=== PATIENT | male | born 1950 | race Two or more races ===

== ENCOUNTER 2025-02-20 04:15 | Inpatient (IN) | payer MEDICARE ==
[~2025-02-20] VITALS: Ht 172.7 cm; Wt 90.1 kg
[2025-02-20] VITALS (9 sets, daily range): BP systolic 125–159; BP diastolic 45–83; PULSE 45–100; RESP 12–24; TEMP 36.0288–36.7; O2SAT 91–99
[2025-02-20] MEDS: ALBUTEROL (0.083%) 2.5MG/3ML NEB HHN ONE (04:47)
[2025-02-20 05:07] LABS: HEMATOCRIT. 28.4 % (42.0-52.0); HEMOGLOBIN. 8.6 g/dL (14.0-18.0); MEAN PLATELET VOLUME 8.9 fl (7.4-10.4); PLATELET 146 x1000/uL (130-400); RED BLOOD CELL COUNT 3.20 mill/uL (4.7-6.1); RED CELL DISTRIBUTION WIDTH 18.9 % (11.6-14.6)
[2025-02-20 05:18] LABS: INR 1.2
[2025-02-20] MEDS: IPRATROPIUM BROMIDE (0.02%) 0.5MG/2.5ML NEB HHN NR (05:27)
[2025-02-20 05:36] LABS: CREATININE 4.0 mg/dL (0.6-1.3); UREA NITROGEN BLOOD 74 mg/dL (9-23)
[2025-02-20 05:37] LABS: ASPARTATE AMINOTRANSFERASE 61 IU/L (<34); PROTEIN TOTAL 5.5 g/dL (6.0-8.3)
[2025-02-20 05:38] LABS: BILIRUBIN DIRECT 0.2 mg/dL (<=3.0); BILIRUBIN TOTAL 0.8 mg/dL (0.1-1.0); LYMPHOCYTES % MANUAL 10.0 % (20.0-50.0); MONOCYTES % MANUAL 12.0 % (2.0-8.0); NEUTROPHILS % MANUAL 78.0 % (45.0-75.0); PLATELET ESTIMATE NORMAL
[2025-02-20 05:47] LABS: TROPONIN I HIGH SENSITIVITY 99 ng/L (3.0-53)
[2025-02-20 05:52] LABS: ETHANOL BLOOD < 10 mg/dL (<10)
[2025-02-20] MEDS: ASPIRIN 325MG EC TABLET PO ONE (05:59)
[2025-02-20] MEDS: FUROSEMIDE 40MG/4ML VIAL IVP NR (05:59)
[2025-02-20] MEDS ORDERED: DOCUSATE SODIUM 100MG CAPSULE PO PRN (11:15)
[2025-02-20] MEDS ORDERED: ACETAMINOPHEN 325MG TABLET PO PRN ×2 (11:15)
[2025-02-20] MEDS ORDERED: IPRATROPIUM/ALBUTEROL 0.5-3(2.5)MG/3ML NEB HHN PRN (11:15)
[2025-02-20] MEDS ORDERED: GUAIFENESIN 200MG/10ML SUGAR FREE UDC PO PRN (11:15)
[2025-02-20] MEDS ORDERED: MAGNESIUM/ALUMINUM HYDROXIDE/SIMETHICONE 30ML UDC PO PRN (11:15)
[2025-02-20] MEDS ORDERED: NA PHOS,M-B/NA PHOS,DI-BA ENEMA 118ML PR PRN (11:15)
[2025-02-20] MEDS ORDERED: NITROGLYCERIN 0.4MG TABLET SL SL PRN (11:45)
[2025-02-20] MEDS: BLOOD SUGAR DIAGNOSTIC STRIP TEST SCH (12:00)
[2025-02-20] MEDS: CLOPIDOGREL 75MG TABLET PO SCH (12:00)
[2025-02-20] MEDS: ASPIRIN 81MG EC TABLET PO SCH (12:00)
[2025-02-20] MEDS: TAMSULOSIN HCL 0.4MG SR CAPSULE PO SCH (12:00)
[2025-02-20] MEDS: INSULIN LISPRO 100 UNITS/ML SUBCUT SCH (12:00)
[2025-02-20 12:13] LABS: BG BASE EXCESS -8.1 mmol/L (-2.0-3.0); BG CARBOXYHEMOGLOBIN 1.6 % (0.5-1.5); BG DEOXYHEMOGLOBIN 13.2 % (0.0-5.0); BG FRACTION INSPIRED OXYGEN 40; BG HCO3 ACT 22.3 mmol/L (21.0-28.0); BG METHEMOGLOBIN 0.3 % (0.5-1.5); BG OXYGEN SATURATION 86.5 % (94.0-98.0); BG OXYHEMOGLOBIN 84.9 % (94.0-98.0); BG PCO2 74.7 mmHg (35.0-48.0); BG PH 7.093 (7.350-7.450); BG PO2 66.0 mmHg (83.0-108.0); BG SAMPLE SITE RIGHT RADIAL; BG TOTAL HEMOGLOBIN 10.6 g/dL (13.5-17.5); BG VENT MODE NASAL CANNULA
[2025-02-20] MEDS: DEXTROSE 50% WATER 50ML SYRINGE IV SCH (13:02)
[2025-02-20] MEDS: SODIUM BICARBONATE 8.4% 50MEQ/50ML SYR IV SCH (13:02)
[2025-02-20] MEDS: CALCIUM CHLORIDE 1GM/10ML SYR IV SCH (13:03)
[2025-02-20] MEDS: FUROSEMIDE 40MG/4ML VIAL IVP SCH ×2 (13:03→17:46)
[2025-02-20] MEDS: ENOXAPARIN 100MG/ML SYR SUBCUT SCH (13:07)
[2025-02-20] MEDS: INSULIN REGULAR (HUMULIN R) 1000UNITS/10ML VIAL IV SCH (13:08)
[2025-02-20 13:56] LABS: BG BASE EXCESS -6.6 mmol/L (-2.0-3.0); BG CARBOXYHEMOGLOBIN 1.6 % (0.5-1.5); BG DEOXYHEMOGLOBIN 0.6 % (0.0-5.0); BG FRACTION INSPIRED OXYGEN 50; BG HCO3 ACT 23.6 mmol/L (21.0-28.0); BG METHEMOGLOBIN 0.3 % (0.5-1.5); BG OXYGEN SATURATION 99.4 % (94.0-98.0); BG OXYHEMOGLOBIN 97.5 % (94.0-98.0); BG PCO2 76.7 mmHg (35.0-48.0); BG PH 7.106 (7.350-7.450); BG PO2 189.0 mmHg (83.0-108.0); BG SAMPLE SITE RIGHT RADIAL; BG TOTAL HEMOGLOBIN 10.1 g/dL (13.5-17.5); BG VENT MODE MASK - BIPAP; BG VENT RATE 20.0 set
[2025-02-20] MEDS: FAMOTIDINE 20MG/2ML VIAL IV SCH (14:01)
[2025-02-20] MEDS: METHYLPREDNISOLONE SOD SUCC 40MG/ML (ACT-O-VIAL) IV SCH (14:02)
[2025-02-20 15:29] LABS: BG BASE EXCESS -8.8 mmol/L (-2.0-3.0); BG CARBOXYHEMOGLOBIN 1.6 % (0.5-1.5); BG DEOXYHEMOGLOBIN 2.3 % (0.0-5.0); BG FRACTION INSPIRED OXYGEN 30; BG HCO3 ACT 20.7 mmol/L (21.0-28.0); BG METHEMOGLOBIN 0.2 % (0.5-1.5); BG OXYGEN SATURATION 97.7 % (94.0-98.0); BG OXYHEMOGLOBIN 95.9 % (94.0-98.0); BG PCO2 64.5 mmHg (35.0-48.0); BG PH 7.124 (7.350-7.450); BG PO2 108.1 mmHg (83.0-108.0); BG SAMPLE SITE RIGHT RADIAL; BG TOTAL HEMOGLOBIN 10.3 g/dL (13.5-17.5); BG VENT MODE MASK - BIPAP; BG VENT RATE 24.0 set
[2025-02-20] MEDS: ATORVASTATIN CALCIUM 40MG TABLET PO SCH (22:37)
[2025-02-20 22:49] LABS: CREATININE 4.1 mg/dL (0.6-1.3); UREA NITROGEN BLOOD 72 mg/dL (9-23)
[2025-02-20 22:52] LABS: FOLIC ACID (FOLATE) SERUM 14.30 ng/mL (>5.38); TROPONIN I HIGH SENSITIVITY 75 ng/L (3.0-53)
[2025-02-20 22:53] LABS: VITAMIN B12 SERUM 689 pg/mL (211-911)
[2025-02-20 23:01] LABS: PHOSPHORUS 8.0 mg/dL (2.5-4.9)
[2025-02-21] VITALS (16 sets, daily range): BP systolic 135–178; BP diastolic 42–129; PULSE 52–78; RESP 16–27; TEMP 36.2–37.1; O2SAT 89–100
[2025-02-21] MEDS: IPRATROPIUM/ALBUTEROL 0.5-3(2.5)MG/3ML NEB HHN SCH
[2025-02-21] MEDS: SODIUM ZIRCONIUM CYCLOSILICATE 10GM/PACKET PO NR (05:33)
[2025-02-21] MEDS: INSULIN REGULAR (HUMULIN R) 1000UNITS/10ML VIAL IV NR ×2 (05:38→09:37)
[2025-02-21] MEDS: DEXTROSE 50% WATER 50ML SYRINGE IV NR ×2 (05:38→09:35)
[2025-02-21] MEDS: CLONIDINE 0.1MG TABLET PO PRN (06:51)
[2025-02-21 07:35] LABS: CREATININE 4.4 mg/dL (0.6-1.3); TRIGLYCERIDE 82.0 mg/dL (0-150); UREA NITROGEN BLOOD 64.0 mg/dL (9-23)
[2025-02-21 07:36] LABS: LDL CHOLESTEROL 90.0 mg/dL (5-100)
[2025-02-21] MEDS: DEXTROSE 50% WATER 50ML SYRINGE IV PRN (07:41)
[2025-02-21 07:47] LABS: HEMATOCRIT. 34.2 % (42.0-52.0); HEMOGLOBIN. 9.1 g/dL (14.0-18.0); MEAN PLATELET VOLUME 9.2 fl (7.4-10.4); PLATELET 163 x1000/uL (130-400); RED BLOOD CELL COUNT 3.43 mill/uL (4.7-6.1); RED CELL DISTRIBUTION WIDTH 20.0 % (11.6-14.6)
[2025-02-21] MEDS: CALCIUM CHLORIDE 1GM/10ML SYR IV NR (09:35)
[2025-02-21] MEDS: SODIUM BICARBONATE 8.4% 50MEQ/50ML SYR IV NR (09:39)
[2025-02-21] MEDS: HYDRALAZINE 20MG/ML VIAL IV SCH (09:48)
[2025-02-21] MEDS ORDERED: ALBUTEROL (0.5%) 2.5MG/0.5ML NEB HHN NR (10:00)
[2025-02-21 10:21] LABS: BG BASE EXCESS -8.2 mmol/L (-2.0-3.0); BG CARBOXYHEMOGLOBIN 1.7 % (0.5-1.5); BG DEOXYHEMOGLOBIN 4.3 % (0.0-5.0); BG FLOW(L/min) 4.00 L/min; BG FRACTION INSPIRED OXYGEN 36; BG HCO3 ACT 22.2 mmol/L (21.0-28.0); BG METHEMOGLOBIN 0.3 % (0.5-1.5); BG OXYGEN SATURATION 95.6 % (94.0-98.0); BG OXYHEMOGLOBIN 93.7 % (94.0-98.0); BG PCO2 74.1 mmHg (35.0-48.0); BG PH 7.094 (7.350-7.450); BG PO2 89.6 mmHg (83.0-108.0); BG SAMPLE SITE RIGHT RADIAL; BG TOTAL HEMOGLOBIN 10.5 g/dL (13.5-17.5); BG VENT MODE NASAL CANNULA
[2025-02-21 10:28] LABS: BAND% 1.0 % (1.0-6.0); LYMPHOCYTES % MANUAL 3.0 % (20.0-50.0); MONOCYTES % MANUAL 3.0 % (2.0-8.0); NEUTROPHILS % MANUAL 93.0 % (45.0-75.0); PLATELET ESTIMATE NORMAL
[2025-02-21 13:33] LABS: BG BASE EXCESS -7.4 mmol/L (-2.0-3.0); BG CARBOXYHEMOGLOBIN 0.4 % (0.5-1.5); BG DEOXYHEMOGLOBIN 0.7 % (0.0-5.0); BG HCO3 ACT 21.6 mmol/L (21.0-28.0); BG METHEMOGLOBIN 0.2 % (0.5-1.5); BG OXYGEN SATURATION 99.3 % (94.0-98.0); BG OXYHEMOGLOBIN 98.7 % (94.0-98.0); BG PCO2 62.6 mmHg (35.0-48.0); BG PH 7.156 (7.350-7.450); BG PO2 168.4 mmHg (83.0-108.0); BG SAMPLE SITE RIGHT RADIAL; BG TOTAL HEMOGLOBIN 10.4 g/dL (13.5-17.5); BG VENT MODE MASK - BIPAP; BG VENT RATE 24.0 set
[2025-02-21] MEDS: AMLODIPINE 5MG TABLET PO SCH (15:53)
[2025-02-21] MEDS: FERROUS SULFATE 300MG/5ML UDC PO SCH (15:53)
[2025-02-21] MEDS: INSULIN REGULAR (HUMULIN R) 1000UNITS/10ML VIAL IV SCH (20:45)
[2025-02-21] MEDS: DEXTROSE 50% WATER 50ML SYRINGE IV SCH (20:45)
[2025-02-22] VITALS (17 sets, daily range): BP systolic 106–181; BP diastolic 51–120; PULSE 66–85; RESP 0–28; TEMP 36.3–36.8; O2SAT 93–100
[2025-02-22] MEDS ORDERED: ALBUTEROL (0.5%) 2.5MG/0.5ML NEB HHN NR
[2025-02-22] MEDS: INSULIN GLARGINE 100 UNITS/ML SUBCUT NR (00:06)
[2025-02-22] MEDS: SODIUM ZIRCONIUM CYCLOSILICATE 10GM/PACKET PO SCH (00:08)
[2025-02-22 08:55] LABS: BG BASE EXCESS -5.6 mmol/L (-2.0-3.0); BG CARBOXYHEMOGLOBIN 0.9 % (0.5-1.5); BG DEOXYHEMOGLOBIN 0.4 % (0.0-5.0); BG FRACTION INSPIRED OXYGEN 40; BG HCO3 ACT 23.4 mmol/L (21.0-28.0); BG METHEMOGLOBIN 0.0 % (0.5-1.5); BG OXYGEN SATURATION 99.6 % (94.0-98.0); BG OXYHEMOGLOBIN 98.7 % (94.0-98.0); BG PCO2 66.0 mmHg (35.0-48.0); BG PH 7.167 (7.350-7.450); BG PO2 161.3 mmHg (83.0-108.0); BG SAMPLE SITE LEFT RADIAL; BG TOTAL HEMOGLOBIN 9.7 g/dL (13.5-17.5); BG VENT MODE MASK - BIPAP; BG VENT RATE 24.0 set
[2025-02-22] MEDS ORDERED: LIDOCAINE HCL 1% 10 MG/ML 10ML VIAL ONE (09:25)
[2025-02-22 12:52] LABS: HEMATOCRIT. 29.1 % (42.0-52.0); HEMOGLOBIN. 8.7 g/dL (14.0-18.0); MEAN PLATELET VOLUME 8.8 fl (7.4-10.4); PLATELET 153 x1000/uL (130-400); RED BLOOD CELL COUNT 3.20 mill/uL (4.7-6.1); RED CELL DISTRIBUTION WIDTH 18.6 % (11.6-14.6)
[2025-02-22 13:05] LABS: CREATININE 4.1 mg/dL (0.6-1.3); UREA NITROGEN BLOOD 81.0 mg/dL (9-23)
[2025-02-22] MEDS: FUROSEMIDE 100MG/10ML VIAL IVP NR (13:19)
[2025-02-22 14:27] LABS: BAND% 5.0 % (1.0-6.0); LYMPHOCYTES % MANUAL 7.0 % (20.0-50.0); MONOCYTES % MANUAL 11.0 % (2.0-8.0); NEUTROPHILS % MANUAL 77.0 % (45.0-75.0); PLATELET ESTIMATE NORMAL
[2025-02-22] MEDS: ONDANSETRON HCL 4MG/2ML INJ IV PRN (23:56)
[2025-02-23] VITALS (8 sets, daily range): PULSE 78–89; RESP 18–20; TEMP 36.7–37.1; O2SAT 93–99
[2025-02-23 09:57] LABS: BG BASE EXCESS -3.9 mmol/L (-2.0-3.0); BG CARBOXYHEMOGLOBIN 1.6 % (0.5-1.5); BG DEOXYHEMOGLOBIN 8.5 % (0.0-5.0); BG FRACTION INSPIRED OXYGEN 21; BG HCO3 ACT 23.3 mmol/L (21.0-28.0); BG METHEMOGLOBIN 0.1 % (0.5-1.5); BG OXYGEN SATURATION 91.4 % (94.0-98.0); BG OXYHEMOGLOBIN 89.8 % (94.0-98.0); BG PCO2 52.6 mmHg (35.0-48.0); BG PH 7.264 (7.350-7.450); BG PO2 61.2 mmHg (83.0-108.0); BG SAMPLE SITE LEFT RADIAL; BG TOTAL HEMOGLOBIN 10.3 g/dL (13.5-17.5); BG VENT MODE ROOM AIR
== END 2025-02-23 15:50 | disposition left against medical advice (07) | DRG 189 ==
LOC: ER 04:15 → MICUSO 05:37 → EDBEDREQ 05:40 → EDBEDREQTM 05:40 → 5EST 15:05
PROVIDERS: ADMIT Internal Medicine; ATTEND Internal Medicine
PROC: 5A09357 Assistance with Respiratory Ventilation, Less than 24 Consecutive Hours, Continuous Positive Airway Pressure (ICD-10-PCS; principal; 2025-02-20)
PROC: 5A09357 Assistance with Respiratory Ventilation, Less than 24 Consecutive Hours, Continuous Positive Airway Pressure (ICD-10-PCS; 2025-02-22)
PROC: 5A09357 Assistance with Respiratory Ventilation, Less than 24 Consecutive Hours, Continuous Positive Airway Pressure (ICD-10-PCS; 2025-02-23)
DX: J96.02 Acute respiratory failure with hypercapnia (principal); G92.8 Other toxic encephalopathy; I21.A1 Myocardial infarction type 2; E87.4 Mixed disorder of acid-base balance; N17.9 Acute kidney failure, unspecified; Z79.02 Long term (current) use of antithrombotics/antiplatelets; J44.1 Chronic obstructive pulmonary disease with (acute) exacerbation; I13.0 Hypertensive heart and chronic kidney disease with heart failure and stage 1 through stage 4 chronic kidney disease, or unspecified chronic kidney disease; N18.9 Chronic kidney disease, unspecified; D53.9 Nutritional anemia, unspecified; G47.33 Obstructive sleep apnea (adult) (pediatric); E78.5 Hyperlipidemia, unspecified; E87.5 Hyperkalemia; R74.01 Elevation of levels of liver transaminase levels; I48.91 Unspecified atrial fibrillation; F17.210 Nicotine dependence, cigarettes, uncomplicated; F14.90 Cocaine use, unspecified, uncomplicated; I50.9 Heart failure, unspecified; Z79.899 Other long term (current) drug therapy; Z79.82 Long term (current) use of aspirin
CPT/HCPCS: 36415; 36600; 71045; 76770; 80048; 80061; 80076; 80320; 80329; 82375; 82607; 82728; 82746; 82805; 82962; 83036; 83540; 83550; 83605; 83735; 83880; 84100; 84132; 84443; 84484; 85025; 86850; 86900; 87426; 93005; 94070; 94640; 94660; 94664; 96374; 96375; 99285; A4606; A4615; J0360; J1308; J1650; J1815; J1938; J2003; J2405; J2919; J3490; G0480